=== PATIENT | female | born 1960 | race Caucasian/White ===

== ENCOUNTER 2016-11-21 21:49 | Emergency (ER) | payer SELFPAY ==
[~2016-11-21] VITALS: Ht 160 cm; Wt 62.0 kg
[2016-11-21 21:51] VITALS: BP 120/72
[2016-11-21 22:55] LABS: ASPARTATE AMINO TRANSFERASE 14 U/L (15-37); BLOOD UREA NITROGEN 14 mg/dL (7-18)
== END 2016-11-22 00:22 | disposition home or self-care (01) ==
LOC: ED 11-22 00:10
DX: R30.0 Dysuria (principal); R10.30 Lower abdominal pain, unspecified; F17.200 Nicotine dependence, unspecified, uncomplicated
CPT/HCPCS: 36415; 80053; 81001; 83690; 85025; 87086; 99284

== ENCOUNTER 2017-07-07 13:18 | Emergency (ER) | payer MEDICARE ==
[~2017-07-07] VITALS: Ht 160 cm; Wt 65.0 kg
[2017-07-07] MEDS ORDERED: ASPIRIN 81 MG TABLET CHEW PO ONE (13:30)
[2017-07-07] MEDS ORDERED: SODIUM CHLORIDE FLUSH 10ML SYR IVF ONE (13:30)
[2017-07-07] MEDS ORDERED: ASPIRIN 81 MG TABLET CHEW ONE (13:42)
[2017-07-07 13:54] LABS: BASOPHILS # (AUTO) 0.06 x10^3/uL (0-0.1); BASOPHILS % (AUTO) 1 % (0-1); EOSINOPHILS # (AUTO) 0.08 x10^3/uL (0-0.4); EOSINOPHILS % (AUTO) 1 % (1-7); LYMPHOCYTES # (AUTO) 2.67 x10^3/uL (1-3.4); LYMPHOCYTES % (AUTO) 37 % (22-44); MD NO; MEAN CORPUSCULAR HEMOGLOBIN 28.1 pg (27.0-34.8); MEAN CORPUSCULAR HGB CONC 32.7 g/dL (32.4-35.8); MEAN CORPUSCULAR VOLUME 85.9 fL (80-100); MEAN PLATELET VOLUME 8.4 fL (7.4-10.4); MONOCYTES # (AUTO) 0.44 x10^3/uL (0.2-0.8); MONOCYTES % (AUTO) 6 % (2-9); NEUTROPHILS # (AUTO) 3.91 x10^3/uL (1.8-6.8); NEUTROPHILS % (AUTO) 55 % (42-75); PLATELET COUNT 286 x10^3/uL (130-400); RED BLOOD COUNT 5.13 x10^6/uL (3.82-5.3); RED CELL DISTRIBUTION WIDTH 14.1 % (9.6-15.2)
[2017-07-07] MEDS ORDERED: PLEASE ENTER HEIGHT AND WEIGHT MC SCH (14:00)
[2017-07-07 14:01] LABS: ALBUMIN 3.4 g/dL (3.4-5.0); ANION GAP 10 mmol/L (5-15); CALCIUM 8.7 mg/dL (8.5-10.1); CHLORIDE 109 mmol/L (98-107)
[2017-07-07 14:07] LABS: ALANINE AMINOTRANSFERASE 33 U/L (12-78); ALKALINE PHOSPHATASE 123 U/L (45-117); BILIRUBIN,TOTAL 0.3 mg/dL (0.2-1.0); CREATININE 0.84 mg/dL (0.55-1.02); TOTAL PROTEIN 7.2 g/dL (6.4-8.2); TROPONIN I < 0.015 ng/mL (0.000-0.045)
[2017-07-07 14:25] VITALS: BP 136/76
== END 2017-07-07 14:44 | disposition home or self-care (01) ==
LOC: ED 14:43
DX: R07.89 Other chest pain (principal); Z72.89 Other problems related to lifestyle; F17.200 Nicotine dependence, unspecified, uncomplicated
CPT/HCPCS: 36415; 71045; 80053; 84484; 85025; 93005; 99285

== ENCOUNTER 2018-06-15 14:11 | Inpatient (IN) | payer MEDICARE, MEDICAID ==
[~2018-06-15] VITALS: Ht 160 cm; Wt 67.8 kg
--- NOTE | 2018-06-15 14:22 | NUR ---
PT EVALUATED BY VERONICA CERVANTES. EKG IN PROGRESS. ON 3L OF O2 VIA NC D/T O2 SAT IN MID 80S. SR ON MONITOR. PT C/O MID-STERNAL PAIN AND PAIN TO L MID BACK "TO MY LUNGS". PT REPORTED T TO HAVE HAD A NEAR SYNCOPAL EPISODE AROUND 1320 WHEN SHE FIRST HAD THE PAIN. PT RECEIVED ASA 324MG AND NITRO X1 WITH NO RELIEF. BS 103 EN ROUTE.
[2018-06-15] MEDS ORDERED: SODIUM CHLORIDE FLUSH 10ML SYR IVF ONE (14:30)
[2018-06-15] MEDS ORDERED: LORazepam 2 MG/ML, 1ML IVPush ONE (14:30)
[2018-06-15 14:44] LABS: BASOPHILS # (AUTO) 0.01 x10^3/uL (0-0.1); BASOPHILS % (AUTO) 0 % (0-1); EOSINOPHILS % (AUTO) 0 % (1-7); LYMPHOCYTES # (AUTO) 0.94 x10^3/uL (1-3.4); LYMPHOCYTES % (AUTO) 11 % (22-44); MD NO; MEAN CORPUSCULAR HEMOGLOBIN 28.8 pg (27.0-34.8); MEAN CORPUSCULAR HGB CONC 33.4 g/dL (32.4-35.8); MEAN CORPUSCULAR VOLUME 86.1 fL (80-100); MEAN PLATELET VOLUME 7.9 fL (7.4-10.4); MONOCYTES # (AUTO) 0.52 x10^3/uL (0.2-0.8); MONOCYTES % (AUTO) 6 % (2-9); NEUTROPHILS # (AUTO) 7.52 x10^3/uL (1.8-6.8); NEUTROPHILS % (AUTO) 84 % (42-75); PLATELET COUNT 251 x10^3/uL (130-400); RED BLOOD COUNT 4.85 x10^6/uL (3.82-5.3); RED CELL DISTRIBUTION WIDTH 12.8 % (9.6-15.2)
[2018-06-15 14:56] LABS: ALANINE AMINOTRANSFERASE 19 U/L (12-78); ALBUMIN 3.4 g/dL (3.4-5.0); ANION GAP 11 mmol/L (5-15); CALCIUM 8.4 mg/dL (8.5-10.1); CHLORIDE 105 mmol/L (98-107); CREATININE 0.82 mg/dL (0.55-1.02)
[2018-06-15 15:00] LABS: ALKALINE PHOSPHATASE 95 U/L (45-117); BILIRUBIN,TOTAL 0.3 mg/dL (0.2-1.0); TROPONIN I < 0.015 ng/mL (0.000-0.045)
[2018-06-15] MEDS ORDERED: LORazepam 2 MG/ML, 1ML ONE (15:26)
[2018-06-15] MEDS ORDERED: OMNIPAQUE 350 MG/ML, 100ML BOTTLE ONE (16:18)
[2018-06-15] MEDS ORDERED: CEFTRIAXONE PMX 1GM/50ML 50 ML IVPB ONE (17:00)
[2018-06-15] MEDS ORDERED: AZITHROMYCIN 500 MG in SODIUM CHLORIDE 0.9% 250 ML IVPB ONE (17:00)
--- NOTE | 2018-06-15 17:05 | NUR ---
PT TO BE ADMITTED.
[2018-06-15] MEDS ORDERED: CEFTRIAXONE PMX 1GM/50ML 50 ML ONE (17:12)
[2018-06-15] MEDS ORDERED: PHARMACY MAY ADJ FOR RENAL FX MC PRN (17:30)
[2018-06-15] MEDS ORDERED: KETOROLAC 30 MG/1 ML IVPush PRN (17:30)
[2018-06-15] MEDS: CEFTRIAXONE PMX 1GM/50ML 50 ML IV SCH (17:30)
[2018-06-15] MEDS ORDERED: ONDANSETRON 2MG/ML, 2ML IVPB PRN (17:30)
[2018-06-15] MEDS ORDERED: ACETAMINOPHEN 325 MG TABLET PO PRN (17:30)
[2018-06-15] MEDS ORDERED: DOCUSATE 100 MG CAPSULE PO PRN (17:30)
[2018-06-15] MEDS ORDERED: GUAIFENESIN 200 MG TABLET ONE (18:02)
[2018-06-15] MEDS: GUAIFENESIN 200 MG TABLET PO SCH ×2 (18:06→22:36)
--- NOTE | 2018-06-15 19:00 | NUR ---
assumed care of pt. report from Karoline FREEMAN. pt here fo pneumonia, awaiting admission. pt IV ABX infusing. on O2 @ 3L NC. no apparent distress at this time. update don POC. no family at bedside.
--- NOTE | 2018-06-15 20:00 | NUR ---
pt sleeping. lights dimmed. no apparent distress at this time. no family at bedside. awaiting admit
[2018-06-15 20:38] LABS: TROPONIN I < 0.015 ng/mL (0.000-0.045)
--- NOTE | 2018-06-15 21:27 | NUR ---
report called to Glory FREEMAN
--- NOTE | 2018-06-15 21:32 | NUR ---
Zithromycin infusion completed.
--- NOTE | 2018-06-15 21:50 | NUR ---
pt to floor via gurney with transport
--- NOTE | 2018-06-15 21:51 | NUR ---
no fluids infusing on admit
[2018-06-15] MEDS: ENOXAPARIN 40 MG/0.4 ML SQ SCH (22:36)
[2018-06-15] MEDS: SODIUM CHLORIDE 0.9% 1,000 ML IV SCH (22:36)
[2018-06-16 00:52] VITALS: BP 116/52
[2018-06-16 04:53] VITALS: BP 95/56
[2018-06-16 06:11] LABS: BASOPHILS # (AUTO) 0.04 x10^3/uL (0-0.1); BASOPHILS % (AUTO) 0 % (0-1); EOSINOPHILS # (AUTO) 0.01 x10^3/uL (0-0.4); EOSINOPHILS % (AUTO) 0 % (1-7); LYMPHOCYTES # (AUTO) 1.87 x10^3/uL (1-3.4); LYMPHOCYTES % (AUTO) 18 % (22-44); MD NO; MEAN CORPUSCULAR HEMOGLOBIN 28.4 pg (27.0-34.8); MEAN CORPUSCULAR HGB CONC 32.8 g/dL (32.4-35.8); MEAN CORPUSCULAR VOLUME 86.6 fL (80-100); MEAN PLATELET VOLUME 8.6 fL (7.4-10.4); MONOCYTES # (AUTO) 0.39 x10^3/uL (0.2-0.8); MONOCYTES % (AUTO) 4 % (2-9); NEUTROPHILS # (AUTO) 8.08 x10^3/uL (1.8-6.8); NEUTROPHILS % (AUTO) 78 % (42-75); PLATELET COUNT 207 x10^3/uL (130-400); RED BLOOD COUNT 4.79 x10^6/uL (3.82-5.3); RED CELL DISTRIBUTION WIDTH 13.4 % (9.6-15.2)
[2018-06-16 06:15] LABS: CHLORIDE 108 mmol/L (98-107)
[2018-06-16] MEDS: GUAIFENESIN 200 MG TABLET PO SCH ×4 (06:22→21:47)
[2018-06-16 06:33] LABS: ANION GAP 9 mmol/L (5-15); CALCIUM 8.2 mg/dL (8.5-10.1)
[2018-06-16] MEDS: DOXYCYCLINE 100 MG in DEXTROSE 5% 250 ML IV SCH ×2 (06:37→18:00)
[2018-06-16 07:26] VITALS: BP 119/58
[2018-06-16] MEDS: SODIUM CHLORIDE 0.9% 1,000 ML IV SCH (08:35)
[2018-06-16] MEDS: NICOTINE 14MG/24 HR PATCH.TD24 TD SCH (08:35)
[2018-06-16 09:40] LABS: RAPID INFLUENZA A Negative (Negative); RAPID INFLUENZA B Negative (Negative)
[2018-06-16 12:46] VITALS: BP 102/63
[2018-06-16] MEDS: CEFTRIAXONE PMX 1GM/50ML 50 ML IV SCH (16:54)
[2018-06-16 19:10] VITALS: BP 96/55
[2018-06-16] MEDS: ENOXAPARIN 40 MG/0.4 ML SQ SCH (21:48)
[2018-06-17 01:10] VITALS: BP 128/70
[2018-06-17] MEDS: SODIUM CHLORIDE 0.9% 1,000 ML IV SCH ×2 (01:13→10:47)
[2018-06-17 05:42] LABS: CHLORIDE 113 mmol/L (98-107)
[2018-06-17 05:46] LABS: ANION GAP 5 mmol/L (5-15); CALCIUM 8.8 mg/dL (8.5-10.1); CREATININE 0.62 mg/dL (0.55-1.02)
[2018-06-17 06:04] LABS: BASOPHILS # (AUTO) 0.02 x10^3/uL (0-0.1); BASOPHILS % (AUTO) 0 % (0-1); EOSINOPHILS # (AUTO) 0.11 x10^3/uL (0-0.4); EOSINOPHILS % (AUTO) 2 % (1-7); LYMPHOCYTES # (AUTO) 2.61 x10^3/uL (1-3.4); LYMPHOCYTES % (AUTO) 41 % (22-44); MD NO; MEAN CORPUSCULAR HEMOGLOBIN 28.9 pg (27.0-34.8); MEAN CORPUSCULAR HGB CONC 33.1 g/dL (32.4-35.8); MEAN CORPUSCULAR VOLUME 87.4 fL (80-100); MEAN PLATELET VOLUME 8.6 fL (7.4-10.4); MONOCYTES # (AUTO) 0.48 x10^3/uL (0.2-0.8); MONOCYTES % (AUTO) 8 % (2-9); NEUTROPHILS # (AUTO) 3.17 x10^3/uL (1.8-6.8); NEUTROPHILS % (AUTO) 50 % (42-75); PLATELET COUNT 227 x10^3/uL (130-400); RED BLOOD COUNT 4.85 x10^6/uL (3.82-5.3); RED CELL DISTRIBUTION WIDTH 13.5 % (9.6-15.2)
[2018-06-17] MEDS: GUAIFENESIN 200 MG TABLET PO SCH ×2 (06:19→10:46)
[2018-06-17] MEDS: DOXYCYCLINE 100 MG in DEXTROSE 5% 250 ML IV SCH (06:20)
[2018-06-17 07:02] VITALS: BP 136/67
[2018-06-17] MEDS: NICOTINE 14MG/24 HR PATCH.TD24 TD SCH (08:52)
[2018-06-17] MEDS ORDERED: DOXY100C2 PO (11:55)
[2018-06-17] MEDS ORDERED: CEFD300C37 PO (11:55)
== END 2018-06-17 12:48 | disposition home or self-care (01) | DRG 193 ==
LOC: ED 16:53 → EDIP 16:54 → ED 17:08 → 4EST 22:07
PROVIDERS: ADMIT Hospitalist; ATTEND Hospitalist
DX: J18.1 Lobar pneumonia, unspecified organism (principal); J96.00 Acute respiratory failure, unspecified whether with hypoxia or hypercapnia; E87.1 Hypo-osmolality and hyponatremia; J44.0 Chronic obstructive pulmonary disease with (acute) lower respiratory infection; F17.210 Nicotine dependence, cigarettes, uncomplicated; Z66 Do not resuscitate; Z71.6 Tobacco abuse counseling
CPT/HCPCS: 36415; 71045; 71275; 80048; 80053; 83605; 83735; 83880; 84145; 84484; 85025; 87040; 87400; 93005; 96365; 96366; 96368; 96375; G0378; J0456; J0696; J1650; J7060; Q9967; J2060; J7030; J7050